=== PATIENT | female | born 1950 | race Caucasian/White ===

== ENCOUNTER 2023-05-20 10:47 | Inpatient (IN) | payer OTHER, MEDICARE ==
[~2023-05-20] VITALS: Ht 165.1 cm; Wt 91.6 kg
[2023-05-20 10:57] VITALS: BP_SYST 88; PULSE 72; RESP 20; TEMP 98.3; O2SAT 94
[2023-05-20 11:39] LABS: MEAN CORPUSCULAR VOLUME 91 fL (79.0-98.0)
[2023-05-20 11:43] LABS: BASOPHILS # (AUTO) 0.1 K/uL (0.0-0.2); BASOPHILS % (AUTO) 0.2 % (0.0-2.0); EOSINOPHILS % (AUTO) 0.1 % (0.0-4.0); HEMATOCRIT 44.9 % (36-48); HEMOGLOBIN 14.9 g/dL (12.0-16.0); LYMPHOCYTES # (AUTO) 0.8 K/uL (1.0-5.5); LYMPHOCYTES % (AUTO) 3.1 % (20.5-51.5); MEAN CORPUSCULAR HEMOGLOBIN 30 pg (27-31); MEAN CORPUSCULAR HGB CONC 33 % (32-36); MONOCYTES # (AUTO) 1.5 K/uL (0.0-1.0); MONOCYTES % (AUTO) 5.5 % (1.7-9.3); NEUTROPHILS # (AUTO) 24.3 K/uL (1.8-7.7); NEUTROPHILS % (AUTO) 91.1 % (40.0-70.0); PLATELET COUNT (AUTO) 254 K/uL (130-430); RED BLOOD CELL COUNT(AUTO) 4.94 MIL/uL (4.2-6.2); RED CELL DISTRIBUTION WIDTH 14.5 % (9.0-15.0); WHITE BLOOD COUNT (AUTO) 26.7 K/uL (4.8-10.8)
[2023-05-20 11:53] LABS: ANION GAP 16 (5-15); CARBON DIOXIDE 17 mmol/L (23-29); CHLORIDE 102 mmol/L (98-107); CREATININE 3.17 mg/dL (0.55-1.30); GLUCOSE 116 mg/dL (74-106); POTASSIUM 4.2 mmol/L (3.5-5.1); SODIUM SERUM 135 mmol/L (136-145); UREA NITROGEN, BLOOD 40 mg/dL (8-21)
[2023-05-20 11:55] LABS: INR 1.3 (0.8-1.2); PROTHROMBIN TIME 13.5 SECS (9.5-12.5)
[2023-05-20 12:00] LABS: ALANINE AMINOTRANSFERASE 94 U/L (12-78); ALBUMIN 2.7 g/dL (3.4-4.8); ASPARTATE AMINOTRANSFERASE 111 U/L (10-37); BILIRUBIN,DIRECT 2.3 mg/dL (0.0-0.3); LIPASE 2062 U/L (16-77); TOTAL PROTEIN, SERUM 6.4 g/dL (6.4-8.3)
[2023-05-20] MEDS ORDERED: HYDR25TA4 PO (12:09)
[2023-05-20] MEDS ORDERED: LOSA100T24 PO (12:09)
[2023-05-20] MEDS ORDERED: MORP-93 PO (12:09)
[2023-05-20] MEDS ORDERED: NEU300 PO (12:09)
[2023-05-20] MEDS ORDERED: ATEN-41 PO (12:09)
[2023-05-20] MEDS ORDERED: FENO145T24 PO (12:09)
[2023-05-20] MEDS ORDERED: HYDR-3927 PO (12:09)
[2023-05-20] MEDS ORDERED: FLUO20TA29 PO (12:09)
[2023-05-20] MEDS ORDERED: VITD400 PO (12:10)
[2023-05-20] MEDS: NACL 0.9% 1,000 ML IV ONE ×2 (12:15→12:58)
[2023-05-20] MEDS ORDERED: VANCOMYCIN HCL 1.25 GM/NS 250 ML IV ONE (12:45)
[2023-05-20 13:13] LABS: BILIRUBIN,URINE 1+ (NEGATIVE); BLOOD, URINE NEGATIVE (NEGATIVE); GLUCOSE,URINE NEGATIVE (NEGATIVE); KETONES,URINE TRACE (NEGATIVE); LEUKOCYTE ESTERASE ,URINE NEGATIVE (NEGATIVE); NITRITE, URINE NEGATIVE (NEGATIVE); PROTEIN URINE TRACE (NEGATIVE)
[2023-05-20 13:19] LABS: CLARITY/URINE HAZY (CLEAR); COLOR,URINE AMBER (YELLOW)
[2023-05-20 13:28] LABS: BACTERIA,URINE FEW /HPF (None Seen); MUCUS,URINE 1+ /LPF (None Seen); RBC,URINE 0-3 /HPF (0-3); WBC,URINE 0-3 /HPF (0-3)
[2023-05-20] MEDS ORDERED: ACETAMINOPHEN 325 MG TABLET PO PRN (13:30)
[2023-05-20] MEDS ORDERED: DEXTROSE 50% JECT 50 ML DISP.SYRIN IVP PRN (13:30)
[2023-05-20] MEDS ORDERED: NALOXONE HCL 0.4 MG/ML AMP (NARCAN) IVP PRN ×3 (13:30)
[2023-05-20] MEDS: HYDROmorphone 1 MG/ML INJ. CARTRIDGE IVP PRN (14:00)
[2023-05-20] MEDS: PIPERACILLIN/TAZO 3.375 GM in NS 50 ML IV ONE (14:55)
[2023-05-20] MEDS: cefTRIAXone 1 GM IVPB PREMIX 50 ML IV ONE (15:00)
[2023-05-20] MEDS: PANTOPRAZOLE SODIUM 40 MG/VIAL (PROTONIX) IVP ONE (15:02)
[2023-05-20] MEDS ORDERED: PIPERACILLIN/TAZOBACTAM 3.375 GM/VIAL (ZOSYN) IV ONE (15:12)
[2023-05-20] MEDS: NACL 0.9% 1,000 ML IV SCH (15:40)
[2023-05-20] MEDS: GABAPENTIN 300 MG CAPSULE PO SCH (17:15)
[2023-05-20] MEDS ORDERED: cefTRIAXone 1 GM VIAL ONE (17:32)
[2023-05-20] MEDS ORDERED: NOREPINEPHR 4 MG/250 mL NS 250 ML IV PRN (20:00)
[2023-05-20 20:30] VITALS: BP_SYST 126; PULSE 69; RESP 18; TEMP 98.5; O2SAT 98
[2023-05-20 21:00] VITALS: BP_SYST 112; PULSE 68; PULSE 69; RESP 20; TEMP 98.5; TEMP 98.6; O2SAT 100
[2023-05-20] MEDS: HYDROcodone/ACETAMIN 10-325 MG TAB PO PRN (21:39)
[2023-05-20] MEDS: PANTOPRAZOLE SODIUM 40 MG/VIAL (PROTONIX) IVP SCH (21:40)
[2023-05-20] MEDS: cefTRIAXone 1 GM in D5W 50 ML IV SCH (21:40)
[2023-05-20 22:00] VITALS: BP_SYST 102; PULSE 73; RESP 13; O2SAT 96
[2023-05-20 23:00] VITALS: BP_SYST 107; PULSE 69; RESP 17; O2SAT 99
[2023-05-21] VITALS (23 sets, daily range): BP systolic 84–132; PULSE 66–104; RESP 14–23; TEMP 98–99.3; O2SAT 94–99
[2023-05-21 06:04] LABS: ALANINE AMINOTRANSFERASE 66 U/L (12-78); ALBUMIN 2.3 g/dL (3.4-4.8); ANION GAP 10 (5-15); ASPARTATE AMINOTRANSFERASE 64 U/L (10-37); CALCIUM 7.2 mg/dL (8.4-11.0); CARBON DIOXIDE 22 mmol/L (23-29); CHLORIDE 106 mmol/L (98-107); CREATININE 2.08 mg/dL (0.55-1.30); GLUCOSE 101 mg/dL (74-106); LIPASE 635 U/L (16-77); POTASSIUM 3.7 mmol/L (3.5-5.1); SODIUM SERUM 138 mmol/L (136-145); TOTAL BILIRUBIN 1.7 mg/dL (0.0-1.0); TOTAL PROTEIN, SERUM 5.8 g/dL (6.4-8.3); UREA NITROGEN, BLOOD 39 mg/dL (8-21)
[2023-05-21 06:16] LABS: HEMATOCRIT 38.5 % (36-48); HEMOGLOBIN 12.9 g/dL (12.0-16.0); MEAN CORPUSCULAR HEMOGLOBIN 30 pg (27-31); MEAN CORPUSCULAR HGB CONC 33 % (32-36); MEAN CORPUSCULAR VOLUME 90 fL (79.0-98.0); PLATELET COUNT (AUTO) 292 K/uL (130-430); RED BLOOD CELL COUNT(AUTO) 4.29 MIL/uL (4.2-6.2); RED CELL DISTRIBUTION WIDTH 14.5 % (9.0-15.0); WHITE BLOOD COUNT (AUTO) 23.9 K/uL (4.8-10.8)
[2023-05-21] MEDS: CHOLECALCIFEROL (VITAMIN D-3) 400 UNIT TABLET PO SCH (08:40)
[2023-05-21 11:21] LABS: BAND % (MANUAL) 13 % (0-6); BASOPHILS % (MANUAL) 0 % (0-2); EOSINOPHILS % (MANUAL) 0 % (0-7); LYMPHOCYTES % (MANUAL) 1 % (20-46); MONOCYTES % (MANUAL) 2 % (0-11); SMUDGE CELLS FEW
[2023-05-21 11:22] LABS: OVALOCYTES FEW; PLATELET ESTIMATE ADEQUATE (ADEQUATE)
[2023-05-21] MEDS: ONDANSETRON HCL 4 MG/2 ML VIAL IVP PRN (22:20)
[2023-05-21] MEDS: HYDROmorphone 1 MG/ML INJ. CARTRIDGE IVP PRN (23:55)
[2023-05-22] VITALS (23 sets, daily range): BP systolic 105–165; PULSE 75–95; RESP 10–34; TEMP 97.9–99.3; O2SAT 90–98
[2023-05-22 08:53] LABS: ALANINE AMINOTRANSFERASE 60 U/L (12-78); ALBUMIN 2.2 g/dL (3.4-4.8); AMYLASE 136 U/L (0-100); ANION GAP 14 (5-15); ASPARTATE AMINOTRANSFERASE 48 U/L (10-37); BILIRUBIN,DIRECT 0.6 mg/dL (0.0-0.3); CALCIUM 7.3 mg/dL (8.4-11.0); CARBON DIOXIDE 18 mmol/L (23-29); CHLORIDE 107 mmol/L (98-107); CHOLESTEROL 147 mg/dL (<200); CREATININE 1.17 mg/dL (0.55-1.30); GLUCOSE 83 mg/dL (74-106); HDL CHOLESTEROL 13 mg/dL (>55); POTASSIUM 3.5 mmol/L (3.5-5.1); SODIUM SERUM 139 mmol/L (136-145); TOTAL BILIRUBIN 0.9 mg/dL (0.0-1.0); TRIGLYCERIDES 145 mg/dL (30-150); UREA NITROGEN, BLOOD 34 mg/dL (8-21)
[2023-05-22 09:22] LABS: LIPASE 169 U/L (16-77)
[2023-05-22] MEDS: PIPERACILLIN/TAZO 3.375 GM in D5W 50 ML IV SCH (10:12)
[2023-05-22 12:04] LABS: BASOPHILS % (AUTO) 0.1 % (0.0-2.0); HEMATOCRIT 32.3 % (36-48); HEMOGLOBIN 10.7 g/dL (12.0-16.0); LYMPHOCYTES # (AUTO) 0.7 K/uL (1.0-5.5); LYMPHOCYTES % (AUTO) 3.3 % (20.5-51.5); MEAN CORPUSCULAR HEMOGLOBIN 30 pg (27-31); MEAN CORPUSCULAR HGB CONC 33 % (32-36); MEAN CORPUSCULAR VOLUME 89 fL (79.0-98.0); MONOCYTES # (AUTO) 1.7 K/uL (0.0-1.0); MONOCYTES % (AUTO) 7.9 % (1.7-9.3); NEUTROPHILS # (AUTO) 19.6 K/uL (1.8-7.7); NEUTROPHILS % (AUTO) 88.7 % (40.0-70.0); PLATELET COUNT (AUTO) 284 K/uL (130-430); RED BLOOD CELL COUNT(AUTO) 3.61 MIL/uL (4.2-6.2); RED CELL DISTRIBUTION WIDTH 14.3 % (9.0-15.0); WHITE BLOOD COUNT (AUTO) 22.1 K/uL (4.8-10.8)
[2023-05-22 12:17] LABS: INR 1.2 (0.8-1.2); PROTHROMBIN TIME 12.8 SECS (9.5-12.5)
[2023-05-22] MEDS: HYDROmorphone 2 MG/ML VIAL IVP PRN (12:46)
[2023-05-22] MEDS: D5LR 1,000 ML IV SCH (19:53)
[2023-05-23] VITALS (25 sets, daily range): BP systolic 102–155; PULSE 54–112; RESP 10–26; TEMP 97.7–98.8; O2SAT 90–99
[2023-05-23 06:31] LABS: BASOPHILS % (AUTO) 0.1 % (0.0-2.0); EOSINOPHILS % (AUTO) 0.1 % (0.0-4.0); HEMATOCRIT 32.3 % (36-48); HEMOGLOBIN 10.7 g/dL (12.0-16.0); LYMPHOCYTES # (AUTO) 0.9 K/uL (1.0-5.5); LYMPHOCYTES % (AUTO) 3.6 % (20.5-51.5); MEAN CORPUSCULAR HEMOGLOBIN 30 pg (27-31); MEAN CORPUSCULAR HGB CONC 33 % (32-36); MEAN CORPUSCULAR VOLUME 89 fL (79.0-98.0); MONOCYTES # (AUTO) 2.2 K/uL (0.0-1.0); MONOCYTES % (AUTO) 8.4 % (1.7-9.3); NEUTROPHILS # (AUTO) 22.4 K/uL (1.8-7.7); NEUTROPHILS % (AUTO) 87.8 % (40.0-70.0); PLATELET COUNT (AUTO) 337 K/uL (130-430); RED BLOOD CELL COUNT(AUTO) 3.62 MIL/uL (4.2-6.2); RED CELL DISTRIBUTION WIDTH 14.6 % (9.0-15.0); WHITE BLOOD COUNT (AUTO) 25.6 K/uL (4.8-10.8)
[2023-05-23 07:01] LABS: ALANINE AMINOTRANSFERASE 38 U/L (12-78); ALBUMIN 1.9 g/dL (3.4-4.8); ANION GAP 12 (5-15); ASPARTATE AMINOTRANSFERASE 32 U/L (10-37); BILIRUBIN,DIRECT 0.4 mg/dL (0.0-0.3); CALCIUM 8.1 mg/dL (8.4-11.0); CARBON DIOXIDE 20 mmol/L (23-29); CHLORIDE 111 mmol/L (98-107); CREATININE 1.14 mg/dL (0.55-1.30); GLUCOSE 151 mg/dL (74-106); LIPASE 79 U/L (16-77); PHOSPHORUS 2.3 mg/dL (2.7-4.5); POTASSIUM 3.6 mmol/L (3.5-5.1); SODIUM SERUM 143 mmol/L (136-145); TOTAL BILIRUBIN 0.6 mg/dL (0.0-1.0); TOTAL PROTEIN, SERUM 5.6 g/dL (6.4-8.3); UREA NITROGEN, BLOOD 27 mg/dL (8-21)
[2023-05-23] MEDS: IPRATROPIUM/ALBUTEROL SULFATE 3 ML AMPUL.NEB (DUONEB) ONE (09:09)
[2023-05-23] MEDS ORDERED: SEVOFLURANE 15 MIN GAS INH ONE (10:31)
[2023-05-23] MEDS: ACETAMINOPHEN I.V. 1000 MG 100 ML IV ONE (10:31)
[2023-05-23] MEDS ORDERED: LR 1,000 ML IV.SOLN IV ONE (10:31)
[2023-05-23] MEDS ORDERED: PHENYLEPHRINE HCL 10 MG/ML VIAL (NEOSYNEPHRINE) ONE (10:31)
[2023-05-23] MEDS ORDERED: PROPOFOL 200MG/ 20ML VIAL (DIPRIVAN) IV ONE (10:31)
[2023-05-23] MEDS ORDERED: SUGAMMADEX SODIUM 200 MG/2 ML VIAL IV ONE (10:31)
[2023-05-23] MEDS ORDERED: ROCURONIUM BROMIDE 10 MG/ML (ZEMURON) ONE (10:31)
[2023-05-23] MEDS ORDERED: SUCCINYLCHOLINE CHLORIDE 20 MG/ML(QUELICIN) ONE (10:31)
[2023-05-23] MEDS ORDERED: NS 1000 ML IV.SOLN IV ONE (10:31)
[2023-05-23] MEDS: fentaNYL CITRATE/PF 100 MCG/2 ML AMP ONE (10:31)
[2023-05-23] MEDS ORDERED: ONDANSETRON HCL 4 MG/2 ML VIAL ONE (10:31)
[2023-05-23] MEDS: IPRATROPIUM/ALBUTEROL SULFATE 3 ML AMPUL.NEB (DUONEB) INH SCH (11:00)
[2023-05-23] MEDS ORDERED: fentaNYL CITRATE/PF 100 MCG/2 ML AMP IVP PRN ×2 (11:15)
[2023-05-23] MEDS ORDERED: NALOXONE HCL 0.4 MG/ML AMP (NARCAN) IVP PRN (11:15)
[2023-05-23] MEDS ORDERED: ONDANSETRON HCL 4 MG/2 ML VIAL IVP PRN (11:15)
[2023-05-23] MEDS: LR 1,000 ML IV ONE (11:42)
[2023-05-23] MEDS: HYDROmorphone 1 MG/ML INJ. CARTRIDGE IVP PRN (15:56)
[2023-05-23] MEDS: PIPERACILLIN/TAZO 3.375 GM in D5W 50 ML IV SCH (21:12)
[2023-05-23] MEDS ORDERED: PIPERACILLIN/TAZO 4.5 GM in D5W 100 ML IV SCH (22:00)
[2023-05-23] MEDS: metroNIDAZOLE 500 mg/NS 100 ML IV SCH (22:04)
[2023-05-24] VITALS (30 sets, daily range): BP systolic 99–162; PULSE 84–140; RESP 10–28; TEMP 96.8–98.8; O2SAT 87–98
[2023-05-24] MEDS: DEXAMETHASONE SOD PHOSPHATE 10 MG/ML VIAL IVP ONE (00:36)
[2023-05-24] MEDS: METOPROLOL TARTRATE 5 MG/5 ML VIAL IVP ONE (06:00)
[2023-05-24 06:16] LABS: HEMATOCRIT 32.8 % (36-48); HEMOGLOBIN 10.8 g/dL (12.0-16.0); MEAN CORPUSCULAR HEMOGLOBIN 30 pg (27-31); MEAN CORPUSCULAR HGB CONC 33 % (32-36); MEAN CORPUSCULAR VOLUME 90 fL (79.0-98.0); PLATELET COUNT (AUTO) 363 K/uL (130-430); RED BLOOD CELL COUNT(AUTO) 3.65 MIL/uL (4.2-6.2); RED CELL DISTRIBUTION WIDTH 14.6 % (9.0-15.0); WHITE BLOOD COUNT (AUTO) 26.7 K/uL (4.8-10.8)
[2023-05-24] MEDS: METOPROLOL TARTRATE 5 MG/5 ML VIAL ONE (06:23)
[2023-05-24 06:37] LABS: ALANINE AMINOTRANSFERASE 92 U/L (12-78); ALBUMIN 1.8 g/dL (3.4-4.8); ANION GAP 10 (5-15); ASPARTATE AMINOTRANSFERASE 140 U/L (10-37); CALCIUM 8.2 mg/dL (8.4-11.0); CARBON DIOXIDE 23 mmol/L (23-29); CHLORIDE 109 mmol/L (98-107); GLUCOSE 202 mg/dL (74-106); LIPASE 75 U/L (16-77); PHOSPHORUS 2.1 mg/dL (2.7-4.5); POTASSIUM 3.4 mmol/L (3.5-5.1); SODIUM SERUM 142 mmol/L (136-145); TOTAL BILIRUBIN 0.6 mg/dL (0.0-1.0); TOTAL PROTEIN, SERUM 5.5 g/dL (6.4-8.3); UREA NITROGEN, BLOOD 19 mg/dL (8-21)
[2023-05-24 08:06] LABS: ANISOCYTOSIS 1+; BAND % (MANUAL) 8 % (0-6); BASOPHILS % (MANUAL) 0 % (0-2); EOSINOPHILS % (MANUAL) 0 % (0-7); LYMPHOCYTES % (MANUAL) 8 % (20-46); MONOCYTES % (MANUAL) 2 % (0-11); PLATELET ESTIMATE ADEQUATE (ADEQUATE); POLYCHROMASIA 1+
[2023-05-24 08:07] LABS: TEAR DROP CELLS FEW
[2023-05-24] MEDS: KCL 20 mEq in 100 mL (PREMIX) 100 ML IV SCH (11:22)
[2023-05-24] MEDS: METOPROLOL TARTRATE 5 MG/5 ML VIAL IVP PRN (12:14)
[2023-05-24] MEDS: GABAPENTIN 300 MG CAPSULE PO SCH (17:11)
[2023-05-24] MEDS: K PHOS 15 MM in NS 250 ML IV ONE (17:22)
[2023-05-24] MEDS: HYDROmorphone 2 MG/ML VIAL IVP PRN (18:36)
[2023-05-24] MEDS: METOPROLOL TARTRATE 25 MG TABLET PO SCH (20:10)
[2023-05-25] VITALS (30 sets, daily range): BP systolic 123–157; PULSE 86–130; RESP 11–25; TEMP 97.1–98.9; O2SAT 91–97
[2023-05-25 04:32] LABS: BASOPHILS % (AUTO) 0.1 % (0.0-2.0); HEMATOCRIT 34.1 % (36-48); HEMOGLOBIN 11.1 g/dL (12.0-16.0); LYMPHOCYTES # (AUTO) 1.1 K/uL (1.0-5.5); LYMPHOCYTES % (AUTO) 3.7 % (20.5-51.5); MEAN CORPUSCULAR HEMOGLOBIN 29 pg (27-31); MEAN CORPUSCULAR HGB CONC 33 % (32-36); MEAN CORPUSCULAR VOLUME 90 fL (79.0-98.0); MONOCYTES # (AUTO) 2.1 K/uL (0.0-1.0); MONOCYTES % (AUTO) 6.8 % (1.7-9.3); NEUTROPHILS # (AUTO) 27.5 K/uL (1.8-7.7); NEUTROPHILS % (AUTO) 89.4 % (40.0-70.0); PLATELET COUNT (AUTO) 423 K/uL (130-430); RED BLOOD CELL COUNT(AUTO) 3.79 MIL/uL (4.2-6.2); RED CELL DISTRIBUTION WIDTH 15.3 % (9.0-15.0)
[2023-05-25 04:33] LABS: ALANINE AMINOTRANSFERASE 80 U/L (12-78); ALBUMIN 1.8 g/dL (3.4-4.8); ANION GAP 6 (5-15); ASPARTATE AMINOTRANSFERASE 83 U/L (10-37); CALCIUM 8.3 mg/dL (8.4-11.0); CARBON DIOXIDE 26 mmol/L (23-29); CHLORIDE 111 mmol/L (98-107); CREATININE 0.91 mg/dL (0.55-1.30); GLUCOSE 167 mg/dL (74-106); POTASSIUM 4.2 mmol/L (3.5-5.1); SODIUM SERUM 143 mmol/L (136-145); TOTAL BILIRUBIN 0.4 mg/dL (0.0-1.0); TOTAL PROTEIN, SERUM 5.6 g/dL (6.4-8.3); UREA NITROGEN, BLOOD 19 mg/dL (8-21)
[2023-05-25 04:34] LABS: WHITE BLOOD COUNT (AUTO) 30.8 K/uL (4.8-10.8)
[2023-05-25] MEDS ORDERED: HYDROmorphone 1 MG/ML INJ. CARTRIDGE IVP PRN (17:30)
[2023-05-25] MEDS: D5LR 1,000 ML IV SCH (18:53)
[2023-05-25] MEDS: FUROSEMIDE 20 MG/2 ML VIAL IVP ONE (18:59)
[2023-05-25] MEDS: GABAPENTIN 100 MG CAPSULE PO SCH (20:27)
[2023-05-25] MEDS: MEROPENEM 1 GM IVPB PREMIX 50 ML IV SCH (22:31)
[2023-05-26] VITALS (28 sets, daily range): BP systolic 137–159; PULSE 88–108; RESP 18–28; TEMP 97.5–98.9; O2SAT 92–99
[2023-05-26] MEDS: MORPHINE 2 MG/ML INJ. SYRINGE IVP PRN (01:18)
[2023-05-26 05:58] LABS: BASOPHILS % (AUTO) 0.1 % (0.0-2.0); EOSINOPHILS % (AUTO) 0.1 % (0.0-4.0); HEMATOCRIT 34.3 % (36-48); HEMOGLOBIN 11.3 g/dL (12.0-16.0); LYMPHOCYTES # (AUTO) 1.2 K/uL (1.0-5.5); LYMPHOCYTES % (AUTO) 3.9 % (20.5-51.5); MEAN CORPUSCULAR HEMOGLOBIN 30 pg (27-31); MEAN CORPUSCULAR HGB CONC 33 % (32-36); MEAN CORPUSCULAR VOLUME 89 fL (79.0-98.0); MONOCYTES # (AUTO) 2.2 K/uL (0.0-1.0); MONOCYTES % (AUTO) 7.1 % (1.7-9.3); NEUTROPHILS # (AUTO) 27.3 K/uL (1.8-7.7); NEUTROPHILS % (AUTO) 88.8 % (40.0-70.0); PLATELET COUNT (AUTO) 481 K/uL (130-430); RED BLOOD CELL COUNT(AUTO) 3.84 MIL/uL (4.2-6.2)
[2023-05-26 06:14] LABS: ALANINE AMINOTRANSFERASE 74 U/L (12-78); ALBUMIN 1.7 g/dL (3.4-4.8); ANION GAP 9 (5-15); ASPARTATE AMINOTRANSFERASE 75 U/L (10-37); CALCIUM 8.3 mg/dL (8.4-11.0); CARBON DIOXIDE 24 mmol/L (23-29); CHLORIDE 107 mmol/L (98-107); CREATININE 1.02 mg/dL (0.55-1.30); GLUCOSE 156 mg/dL (74-106); POTASSIUM 3.7 mmol/L (3.5-5.1); SODIUM SERUM 140 mmol/L (136-145); TOTAL BILIRUBIN 0.6 mg/dL (0.0-1.0); TOTAL PROTEIN, SERUM 5.4 g/dL (6.4-8.3); UREA NITROGEN, BLOOD 22 mg/dL (8-21)
[2023-05-26 06:29] LABS: WHITE BLOOD COUNT (AUTO) 30.7 K/uL (4.8-10.8)
[2023-05-26] MEDS: VANCOMYCIN HCL 1 GM/NS PREMIX 250 ML IV ONE (08:49)
[2023-05-26] MEDS: FUROSEMIDE 20 MG/2 ML VIAL IVP ONE ×2 (12:18→16:08)
[2023-05-26] MEDS: METHYLPREDNISOLONE SOD SUCC 40 MG/ML VIAL IVP SCH (13:32)
[2023-05-26] MEDS ORDERED: FUROSEMIDE 20 MG/2 ML VIAL IVP ONE (16:00)
[2023-05-26 16:10] LABS: ABG O2 SAT% ESTIMATE 92.3 % (94.0-100.0); BLOOD GAS BASE EXCESS -2.1 mmol/L (-3.0-3.0); BLOOD GAS HCO3 21.6 mmol/L (21.0-27.0); BLOOD GAS PO2 61.7 mmHg (75.0-100.0)
[2023-05-26 16:17] LABS: ALLEN'S TEST POSITIVE (P)
[2023-05-26] MEDS: METHYLPREDNISOLONE SOD SUCC 40 MG/ML VIAL IVP ONE (20:00)
[2023-05-26] MEDS ORDERED: ACETAMINOPHEN 325 MG TABLET PO PRN (22:00)
[2023-05-26] MEDS: LORazepam 2 MG/ML VIAL IVP PRN (22:15)
[2023-05-27] VITALS (16 sets, daily range): BP systolic 119–150; PULSE 84–111; RESP 17–28; TEMP 97.6–98.4; O2SAT 91–98
[2023-05-27] MEDS: METHYLPREDNISOLONE SOD SUCC 40 MG/ML VIAL IVP SCH ×2 (02:06→21:30)
[2023-05-27] MEDS ORDERED: FUROSEMIDE 40 MG TABLET PO ONE (04:15)
[2023-05-27] MEDS: FUROSEMIDE 40 MG/4 ML VIAL IVP ONE ×2 (04:29→12:06)
[2023-05-27 04:46] LABS: HEMATOCRIT 35.7 % (36-48); HEMOGLOBIN 11.9 g/dL (12.0-16.0); LYMPHOCYTES # (AUTO) 0.9 K/uL (1.0-5.5); LYMPHOCYTES % (AUTO) 2.4 % (20.5-51.5); MEAN CORPUSCULAR HEMOGLOBIN 30 pg (27-31); MEAN CORPUSCULAR HGB CONC 33 % (32-36); MEAN CORPUSCULAR VOLUME 89 fL (79.0-98.0); MONOCYTES # (AUTO) 1.1 K/uL (0.0-1.0); NEUTROPHILS # (AUTO) 36.4 K/uL (1.8-7.7); NEUTROPHILS % (AUTO) 94.6 % (40.0-70.0); PLATELET COUNT (AUTO) 543 K/uL (130-430); RED BLOOD CELL COUNT(AUTO) 4.02 MIL/uL (4.2-6.2); RED CELL DISTRIBUTION WIDTH 14.8 % (9.0-15.0)
[2023-05-27 05:11] LABS: ALANINE AMINOTRANSFERASE 58 U/L (12-78); ALBUMIN 1.6 g/dL (3.4-4.8); ANION GAP 9 (5-15); ASPARTATE AMINOTRANSFERASE 49 U/L (10-37); CALCIUM 8.3 mg/dL (8.4-11.0); CARBON DIOXIDE 24 mmol/L (23-29); CHLORIDE 107 mmol/L (98-107); CREATININE 0.93 mg/dL (0.55-1.30); GLUCOSE 175 mg/dL (74-106); LIPASE 74 U/L (16-77); POTASSIUM 3.9 mmol/L (3.5-5.1); SODIUM SERUM 140 mmol/L (136-145); TOTAL BILIRUBIN 0.5 mg/dL (0.0-1.0); TOTAL PROTEIN, SERUM 5.5 g/dL (6.4-8.3); UREA NITROGEN, BLOOD 25 mg/dL (8-21)
[2023-05-27 06:26] LABS: WHITE BLOOD COUNT (AUTO) 38.5 K/uL (4.8-10.8)
[2023-05-27] MEDS: VANCOMYCIN HCL 1.25 GM/NS 250 ML IV SCH (11:59)
[2023-05-27] MEDS: INSULIN REGULAR, HUMAN 100 UNITS/ML, 3 ML VIAL (humuLIN R) SUBCUT PRN (12:09)
[2023-05-28] VITALS (8 sets, daily range): BP systolic 106–138; PULSE 93–111; RESP 18–22; TEMP 97–98; O2SAT 93–99
[2023-05-28 04:39] LABS: HEMATOCRIT 35.3 % (36-48); HEMOGLOBIN 11.7 g/dL (12.0-16.0); MEAN CORPUSCULAR HEMOGLOBIN 29 pg (27-31); MEAN CORPUSCULAR HGB CONC 33 % (32-36); MEAN CORPUSCULAR VOLUME 88 fL (79.0-98.0); PLATELET COUNT (AUTO) 514 K/uL (130-430); RED CELL DISTRIBUTION WIDTH 14.8 % (9.0-15.0)
[2023-05-28 04:50] LABS: ALANINE AMINOTRANSFERASE 44 U/L (12-78); ALBUMIN 1.7 g/dL (3.4-4.8); ANION GAP 8 (5-15); ASPARTATE AMINOTRANSFERASE 31 U/L (10-37); CALCIUM 7.3 mg/dL (8.4-11.0); CARBON DIOXIDE 27 mmol/L (23-29); CHLORIDE 105 mmol/L (98-107); CREATININE 1.01 mg/dL (0.55-1.30); GLUCOSE 222 mg/dL (74-106); POTASSIUM 3.6 mmol/L (3.5-5.1); SODIUM SERUM 140 mmol/L (136-145); TOTAL BILIRUBIN 0.4 mg/dL (0.0-1.0); TOTAL PROTEIN, SERUM 5.2 g/dL (6.4-8.3); UREA NITROGEN, BLOOD 31 mg/dL (8-21)
[2023-05-28 06:04] LABS: WHITE BLOOD COUNT (AUTO) 36.9 K/uL (4.8-10.8)
[2023-05-28] MEDS: FUROSEMIDE 20 MG/2 ML VIAL IVP SCH (08:56)
[2023-05-28 10:26] LABS: BAND % (MANUAL) 6 % (0-6); BASOPHILS % (MANUAL) 0 % (0-2); EOSINOPHILS % (MANUAL) 0 % (0-7); LYMPHOCYTES % (MANUAL) 3 % (20-46); MONOCYTES % (MANUAL) 4 % (0-11)
[2023-05-28 10:27] LABS: PLATELET ESTIMATE INCREASED (ADEQUATE)
[2023-05-28] MEDS: ALBUMIN HUMAN 25% 50 ML IV SCH (11:40)
[2023-05-28] MEDS: ENOXAPARIN SODIUM 40 MG/0.4 ML SYRINGE SUBCUT ONE (15:57)
[2023-05-28] MEDS ORDERED: FUROSEMIDE 20 MG/2 ML VIAL IVP SCH (21:00)
[2023-05-29] MEDS ORDERED: METHYLPREDNISOLONE SOD SUCC 40 MG/ML VIAL IVP SCH (09:00)
[2023-05-29] MEDS ORDERED: ENOXAPARIN SODIUM 40 MG/0.4 ML SYRINGE SUBCUT SCH (09:00)
== END 2023-05-28 18:30 | DRG 853 ==
LOC: SED 10:47 → SIC 12:49 → SMU 05-26 19:11 → STU 05-27 18:47
PROVIDERS: ADMIT Internal Medicine; ATTEND Internal Medicine
PROC: 05HY33Z Insertion of Infusion Device into Upper Vein, Percutaneous Approach (ICD-10-PCS; 2023-05-20)
PROC: 0FT44ZZ Resection of Gallbladder, Percutaneous Endoscopic Approach (ICD-10-PCS; principal; 2023-05-23 10:31)
DX: A41.9 Sepsis, unspecified organism (principal); E43 Unspecified severe protein-calorie malnutrition; K85.10 Biliary acute pancreatitis without necrosis or infection; N17.0 Acute kidney failure with tubular necrosis; J18.9 Pneumonia, unspecified organism; J96.00 Acute respiratory failure, unspecified whether with hypoxia or hypercapnia; R65.21 Severe sepsis with septic shock; K65.9 Peritonitis, unspecified; K80.42 Calculus of bile duct with acute cholecystitis without obstruction; E66.01 Morbid (severe) obesity due to excess calories; E86.0 Dehydration; G89.29 Other chronic pain; I10 Essential (primary) hypertension; Z20.822 Contact with and (suspected) exposure to COVID-19; J98.01 Acute bronchospasm; E78.5 Hyperlipidemia, unspecified; Y95 Nosocomial condition; Z90.710 Acquired absence of both cervix and uterus; Z90.49 Acquired absence of other specified parts of digestive tract; Z79.899 Other long term (current) drug therapy; Z68.33 Body mass index [BMI] 33.0-33.9, adult
CPT/HCPCS: 36415; 36600; 71045; 76705; 78226; 80048; 80053; 80061; 80076; 81000; 81001; 81015; 82150; 82248; 82803; 82948; 83605; 83690; 83735; 83880; 84100; 84484; 85007; 85025; 85027; 85610; 85730; 87040; 87081; 88304; 93005; 93970; 94640; 94660; 94760; 97110-GP; 97530-GP; 99291; A9537; C1727; C9113; G0378; J0131; J0330; J0696; J1030; J1100; J1170; J1650; J1815; J1940; J2060; J2185; J2270; J2370; J2405; J2543; J2704; J3010; J3370; J3480; J3490; J7030; J7050; J7060; J7120; P9046; Q9967